=== PATIENT | male | born 1950 | race Caucasian/White ===

== ENCOUNTER 2016-12-20 08:02 | Inpatient (IN) | payer OTHER, MEDICARE ==
[2016-12-20] VITALS (7 sets, daily range): BP systolic 75–153; BP diastolic 86–105; PULSE 52–84; RESP 18–19; TEMP 97.2–97.6; O2SAT 97–100
[~2016-12-20] VITALS: Ht 188 cm; Wt 99.3 kg
[~2016-12-20 08:02] MED LIST: METO25; ZOLO25TA
[2016-12-20] MEDS ORDERED: SODIUM CHLORIDE 0.9% FLUSH 10 ML FLUSH IVF PRN ×2 (08:30)
[2016-12-20] MEDS ORDERED: SODIUM CHLOR 0.9% 1000 ML INJ 1,000 ML IV ONE ×2 (08:30)
--- NOTE | 2016-12-20 08:52 | RADRPT ---
EXAM DATE/TIME: 12/20/2016 08:34 [facility] COMPARISON: No previous studies available for comparison. INDICATIONS : Syncope, palpitations, numbness in left arm, tremor in right hand, short of breath MEDICAL HISTORY : rotator cuff tear, prostate, liver transplant SURGICAL HISTORY : Liver transplant 2014 ENCOUNTER: Initial ACUITY: 1 day PAIN SCORE: Non-responsive. LOCATION: Bilateral chest FINDINGS: A single view of the chest demonstrates the lungs to be symmetrically aerated without evidence of mas s, infiltrate or effusion. The cardiomediastinal contours are unremarkable. Osseous structures are intact. CONCLUSION: No acute disease. Micheal Conley MD on December 20, 2016 at 8:50 Board Certified Radiologist. This report was verified electronically.
[2016-12-20 08:53] LABS: AUTOMATED NEUTROPHIL # 4.4 TH/MM3 (1.8-7.7); BASOPHIL # 0.1 TH/MM3 (0-0.2); BASOPHIL % 0.8 % (0.0-2.0); EOSINOPHIL # 0.2 TH/MM3 (0-0.4); EOSINOPHIL % 3.2 % (0.0-4.0); HEMATOCRIT 38.8 % (39.0-51.0); HEMOGLOBIN 13.4 GM/DL (13.0-17.0); LYMPH % 15.2 % (9.0-44.0); LYMPHOCYTE # 0.9 TH/MM3 (1.0-4.8); MEAN CELL VOLUME 95.6 FL (80.0-100.0); MEAN CORPUSCULAR HGB CONC 34.5 % (32.0-36.0); MEAN PLATELET VOLUME 8.7 FL (7.0-11.0); MONO % 9.6 % (0.0-8.0); MONOCYTE # 0.6 TH/MM3 (0-0.9); NEUT % 71.2 % (16.0-70.0); PLATELET COUNT 135 TH/MM3 (150-450); RED BLOOD COUNT 4.06 MIL/MM3 (4.50-5.90); RED CELL DISTRIBUTION WIDTH 13.3 % (11.6-17.2); WHITE BLOOD COUNT 6.2 TH/MM3 (4.0-11.0)
--- NOTE | 2016-12-20 08:58 | PD ---
HPI Chief Complaint: Syncope/Near-Syncope Time Seen by Provider: 08:29 Travel History International Travel<30 days: No Contact w/Intl Traveler<30days: No Traveled to known affect area: No History of Present Illness HPI This is a 66-year-old male history of liver transplant, thoracic aortic aneurysm , PTSD, hypertension, who presents today after having a syncopal episode while at work. The patient had syncopal episodes in the past. At one time they believed it was secondary to his choroid plexus papilloma. 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 He states he has not had a syncopal episode for several years now. Patient does report that he had a argument with his prior to going to work. He states when he was at work he started feeling funny in the next thing he remembers is waking up on the floor. He states that he saw a neurosurgeon in [place] who recommended he not have the papilloma removed. PFSH Past Medical History Depression: Yes Cardiovascular Problems: Yes (ascending aortic aneurysm ) High Cholesterol: Yes Cirrhosis: Yes (liver transplant in 2014) Hypertension: Yes Neurologic: Yes (brain tumor- no treatment needed) ?: Not Social History Alcohol Use: No Tobacco Use: No Substance Use: No Allergies-Medications (Allergen,Severity, Reaction): Coded Allergies: No Known Allergies (Verified Allergy, Severe, 09/12/06) Reported Meds & Prescriptions Reported Meds & Active Scripts Active Reported Dapsone 100 Mg Tab 100 Mg PO DAILY Levothyroxine (Levothyroxine Sodium) 25 Mcg Tab 25 Mcg PO DAILY Amlodipine (Amlodipine Besylate) 5 Mg Tab 5 Mg PO DAILY Metoprolol Tartrate 25 Mg Tab 25 Mg PO BID Effexor (Venlafaxine HCl) 100 Mg Tab 100 Mg PO Q12H Tamsulosin (Tamsulosin HCl) 0.4 Mg Cap 0.4 Mg PO HS Aspirin 81 Mg Chew 81 Mg CHEW DAILY Tacrolimus 5 Mg Cap 5 Mg PO Q12H Review of Systems Except as stated in HPI: all other systems reviewed are Neg General / Constitutional: No: Fever, Chills HENT: No: Headaches, Lightheadedness, Neck Pain Cardiovascular: No: Chest Pain or Discomfort, Palpitations Respiratory: No: Cough, Shortness of Breath Gastrointestinal: No: Nausea, Vomiting, Abdominal Pain Genitourinary: No: Dysuria, Incontinence Musculoskeletal: No: Weakness, Pain Neurologic: Positive: Syncope, Sensory Disturbance (numbness of his left arm.) , No: Weakness, Dizziness, Headache, Change in Mentation Physical Exam Narrative GENERAL: Well-developed well-nourished male in no acute rest her distress. The patient does appear to be anxious. SKIN: Focused skin assessment warm/dry. HEAD: Atraumatic. Normocephalic. EYES: No scleral icterus. No injection or drainage. ENT: No nasal bleeding or discharge. Mucous membranes pink and moist. NECK: Trachea midline. Supple. CARDIOVASCULAR: Regular rate and rhythm. No murmur appreciated. RESPIRATORY: No accessory muscle use. Clear to auscultation. Breath sounds equal bilaterally. GASTROINTESTINAL: Abdomen soft, non-tender, nondistended. Hepatic and splenic margins not palpable. MUSCULOSKELETAL: No obvious deformities. No clubbing. No cyanosis. No edema. NEUROLOGICAL: Awake and alert. No obvious cranial nerve deficits. Motor grossly within normal limits. Normal speech. Subjective numbness to his left arm from the shoulder down to the hand. PSYCHIATRIC: Appropriate mood and affect; insight and judgment normal. Data Data Last Documented VS Vital Signs Date Time Temp Pulse Resp B/P (MAP) Pulse Ox O2 Delivery O2 Flow Rate FiO2 12/20/16 09:10 56 18 139/86 (103) 60 18 153/94 (113) 85 18 149/97 (114) 12/20/16 08:36 100 Room Air Orders Orders Electrocardiogram (12/20/16 08:30) Complete Blood Count With Diff (12/20/16 08:30) Comprehensive Metabolic Panel (12/20/16 08:30) Ckmb (Isoenzyme) Profile (12/20/16 08:30) Troponin I (12/20/16 08:30) Urinalysis - C+S If Indicated (12/20/16 08:30) Chest, Single Ap (12/20/16 08:30) Ecg Monitoring (12/20/16 08:30) Iv Access Insert/Monitor (12/20/16 08:30) Oximetry (12/20/16 08:30) Sodium Chloride 0.9% Flush (Ns Flush) (12/20/16 08:30) Sodium Chlor 0.9% 1000 Ml Inj (Ns 1000 M (12/20/16 08:30) Orthostatic Vital Signs (12/20/16 08:34) Ammonia (12/20/16 08:45) Mri Brain W&W/O Contrast (12/20/16 08:47) CKMB (12/20/16 08:30) CKMB% (12/20/16 08:30) Lorazepam Inj (Ativan Inj) (12/20/16 10:00) Gadodiamide Pf Inj (Omniscan Pf Inj) (12/20/16 12:17) Labs Laboratory Tests Test 12/20/16 08:30 12/20/16 10:57 White Blood Count 6.2 TH/MM3 Red Blood Count 4.06 MIL/MM3 Hemoglobin 13.4 GM/DL Hematocrit 38.8 % Mean Corpuscular Volume 95.6 FL Mean Corpuscular Hemoglobin 33.0 PG Mean Corpuscular Hemoglobin Concent 34.5 % Red Cell Distribution Width 13.3 % Platelet Count 135 TH/MM3 Mean Platelet Volume 8.7 FL Neutrophils (%) (Auto) 71.2 % Lymphocytes (%) (Auto) 15.2 % Monocytes (%) (Auto) 9.6 % Eosinophils (%) (Auto) 3.2 % Basophils (%) (Auto) 0.8 % Neutrophils # (Auto) 4.4 TH/MM3 Lymphocytes # (Auto) 0.9 TH/MM3 Monocytes # (Auto) 0.6 TH/MM3 Eosinophils # (Auto) 0.2 TH/MM3 Basophils # (Auto) 0.1 TH/MM3 CBC Comment DIFF FINAL Differential Comment Blood Urea Nitrogen 11 MG/DL Creatinine 1.56 MG/DL Random Glucose 103 MG/DL Total Protein 6.8 GM/DL Albumin 3.8 GM/DL Calcium Level 8.5 MG/DL Alkaline Phosphatase 73 U/L Aspartate Amino Transf (AST/SGOT) 39 U/L Alanine Aminotransferase (ALT/SGPT) 40 U/L Total Bilirubin 0.5 MG/DL Sodium Level 139 MEQ/L Potassium Level 4.4 MEQ/L Chloride Level 106 MEQ/L Carbon Dioxide Level 23.0 MEQ/L Anion Gap 10 MEQ/L Estimat Glomerular Filtration Rate 44 ML/MIN Ammonia 28 MCMOL/L Total Creatine Kinase 539 U/L Creatine Kinase MB 8.9 NG/ML Creatine Kinase MB % 1.7 % Troponin I LESS THAN 0.02 NG/ML Urine Color COLORLESS Urine Turbidity CLEAR Urine pH 7.0 Urine Specific [place] 1.005 Urine Protein NEG mg/dL Urine Glucose (UA) NEG mg/dL Urine Ketones NEG mg/dL Urine Occult Blood NEG Urine Nitrite NEG Urine Bilirubin NEG Urine Urobilinogen LESS THAN 2.0 MG/DL Urine Leukocyte Esterase NEG Urine RBC LESS THAN 1 /hpf Urine WBC 1 /hpf Microscopic Urinalysis Comment CULT NOT INDICATED MDM Medical Decision Making Medical Screen Exam Complete: Yes Emergency Medical Condition: Yes Differential Diagnosis Syncope versus seizure versus CVA versus metabolic drainage. Narrative Course 66-year-old male with a history of Court plexus papilloma, who presents today after having a syncopal episode while at work. The patient reports being confused after the episode. He's had syncope prior to this. The patient states that he was told that he did not need to have this papilloma removed. MRI of the brain shows a 2 and half by 2.9 cm right parietal mass. Unsure whether this is the same mass the patient is referring to that was supposedly in his fourth ventricle. The patient is having symptoms of left hand numbness and tingling. He states it started yesterday. The rest of his neuro exam is nonfocal. Concern is that this may not have been a syncopal episode. I'm concerned that this may have been a seizure. There is a call out to the [facility] hospitalist service for admission and further evaluation. Diagnosis Primary Impression: Syncope Additional Impressions: Intracranial mass History of hypertension Admitting Information Admitting Physician Requests: Admit David Julian MD Dec 20, 2016 08:58
[2016-12-20 09:06] LABS: ALBUMIN 3.8 GM/DL (3.4-5.0); ALT (GPT) 40 U/L (12-78); AST (GOT) 39 U/L (15-37); BLOOD UREA NITROGEN 11 MG/DL (7-18); CALCIUM 8.5 MG/DL (8.5-10.1); CHLORIDE 106 MEQ/L (98-107); CREATININE 1.56 MG/DL (0.60-1.30); GLOMERULAR FILTRATION RATE 44 ML/MIN (>89); GLUCOSE,RANDOM 103 MG/DL (74-106); SODIUM (NA) 139 MEQ/L (136-145)
[2016-12-20] MEDS ORDERED: VENL100T PO ×2 (09:10)
[2016-12-20] MEDS ORDERED: TACR5CAP PO ×2 (09:10)
[2016-12-20] MEDS ORDERED: TAMS0.4C4 PO ×2 (09:10)
[2016-12-20] MEDS ORDERED: AMLO5TAB2 PO ×2 (09:10)
[2016-12-20] MEDS ORDERED: LEVO25TA4 PO ×2 (09:10)
[2016-12-20] MEDS ORDERED: METO25TA3 PO ×2 (09:10)
[2016-12-20] MEDS ORDERED: ASPI81CH CHEW ×2 (09:10)
[2016-12-20] MEDS ORDERED: DAPS1TAB2 PO ×2 (09:10)
[2016-12-20 09:13] LABS: ALKALINE PHOSPHATASE 73 U/L (45-117); TOTAL BILIRUBIN ADULT 0.5 MG/DL (0.2-1.0); TOTAL PROTEIN 6.8 GM/DL (6.4-8.2); TROPONIN I LESS THAN 0.02 NG/ML (0.02-0.05)
[2016-12-20] MEDS ORDERED: LORazepam 2 MG/ML VIAL IV PUSH ONE ×2 (10:00)
[2016-12-20 11:55] LABS: BILIRUBIN, URINE NEG (NEG); BLOOD, URINE NEG (NEG); GLUCOSE,URINE NEG (NEG); KETONE, URINE NEG (NEG); NITRITE,URINE NEG (NEG); URINE COLOR COLORLESS (YELLW/STRAW); URINE LEUKOCYTE ESTERASE NEG (NEG)
[2016-12-20] MEDS ORDERED: GADODIAMIDE PF 287 MG/ML 20 ML VIAL (for RAD MRI) IVCONTRAST ONE ×2 (12:17)
--- NOTE | 2016-12-20 12:35 | RADRPT ---
EXAM DATE/TIME: 12/20/2016 11:32 [facility] COMPARISON: No previous studies available for comparison. INDICATIONS : Brain mass. CONTRAST: 20 cc Omniscan (gadodiamide) IV MEDICAL HISTORY : Hypertension. SURGICAL HISTORY : LIVER TRANSPLANT ENCOUNTER: Subsequent ACUITY: 2 day PAIN SCORE: 2/10 LOCATION: cranial TECHNIQUE: Multiplanar, multisequence MRI of the brain was performed both prior to and following the administrat ion of paramagnetic contrast. FINDINGS: A heterogeneously enhancing mass is seen in the right parietal lobe. It is adjacent to and potentiall y arising from within the posterior horn of the right ventricle and is focally contiguous with the ch oroid plexus. The mass measures approximately 2.2 x 2.9 x 2.5 cm. There may be some patchy calcificat ion and please correlate with CT. Focal adjacent cystic expansion of the right lateral ventricle is n oted. There is some susceptibility artifact within the mass on the gradient echo imaging. No midline shift. No other masses are demonstrated. No acute bleed. Mild chronic periventricular white matter changes a re noted. There is no evidence of an acute ischemic event. CONCLUSION: Solid, heterogeneously enhancing right parietal lobe mass that is periventricular but probably not in traventricular. The lesion is nonspecific. Hemangioblastoma, glial tumor, metastatic disease and lymp elieser are in the differential. No midline shift. No acute hemorrhage. Focal cystic expansion of the ri ght lateral ventricle but no diffuse ventriculomegaly. Leonard Rosenthal MD on December 20, 2016 at 12:26 Board Certified Radiologist. This report was verified electronically.
--- NOTE | 2016-12-20 13:34 | EKG ---
Date Performed: 12/20/2016 Time Performed: 08:31:11 PTAGE: 66 years EKG: Sinus rhythm MARKED LEFT AXIS DEVIATION ABNORMAL ECG Compared to prior tracing no significant change PREVIOUS TRACING : 09/15/2006 05.48 DOCTOR: Noé Raines Interpretating Date/Time 12/20/2016 13:31:02
[2016-12-20] MEDS ORDERED: LORazepam 2 MG/ML VIAL IV PUSH PRN ×2 (13:45)
[2016-12-20] MEDS ORDERED: NALOXONE HCL 0.4 MG/ML AMP IV PUSH PRN ×2 (13:45)
[2016-12-20] MEDS ORDERED: SODIUM CHLORIDE 0.9% FLUSH 10 ML FLUSH IV FLUSH PRN ×2 (13:45)
--- NOTE | 2016-12-20 15:52 | MB ---
cc: BRITT WITT DATE OF CONSULTATION: 12/20/2016 REASON FOR CONSULTATION Syncope versus seizure. HISTORY OF PRESENT ILLNESS Mr. Villa is a very pleasant 66-year-old man who had episode of loss of consciousness today. This occurred while he was at work. He has a history of syncope several years ago in the past. 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 He was under stress prior to the event. He never had any seizures in the past. PAST MEDICAL HISTORY 1. History of choroid plexus papilloma. 2. Hypertension. 3. Thoracic aortic aneurysm. 4. PTSD. 5. Liver transplant in 2014. MEDICATIONS Medications at home are: 1. Dapsone. 2. Levothyroxine. 3. Amlodipine. 4. Metoprolol. 5. Effexor. 6. Tamsulosin. 7. Aspirin. 8. Tacrolimus. ALLERGIES None known. SOCIAL HISTORY Denies alcohol use. NEUROLOGIC EXAMINATION VITAL SIGNS: Blood pressure is 139/86 supine, standing is 149/97, pulse is 60, respirations 18. NEURO EXAM: Higher cortical functions are normal. Cranial nerves intact. Motor exam 5/5 strength of all groups in both upper and lower extremities. There is no drift. 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 LABORATORY DATA White count is 6200, hemoglobin 13.4, hematocrit 38%, platelets 135,000. Sodium 139, potassium 4.4, chloride 106, CO2 23, the BUN is 11, creatinine 1.56, GFR is 44, AST 39, ALT is 40, ammonia 28. EEG Shows arrhythmic periodic discharges, possibly epileptiform in nature. EKG Shows left axis deviation. IMPRESSION 1. Syncope, possible seizure based on the EEG finding. 2. MRI finding of the tumor in the right parietal area, does appear to be adjacent to the cord plexus, suspect cord plexus papilloma based on history. RECOMMENDATIONS Recommend starting Keppra, because of the EEG findings, suggest neurosurgical evaluation as well. Also obtain carotid ultrasound and echocardiogram. MD VALERY Aguiar/PHAN /3:14 PM /3:24 PM
--- NOTE | 2016-12-20 16:14 | HHI.HP ---
HPI Service [facility] Primary Care Physician [facility] Admission Diagnosis syncope vs seizure, hypertension, liver transplant, renal insufficie Diagnoses: Travel History International Travel<30 Days: No Contact w/Intl Traveler <30 Da: No Traveled to Known Affected Are: No History of Present Illness hx from patient, ER MD communication and review of medical records stated had "syncope" felt dark felt loss of sense of direction maybe did not pass out was sitting at the tiem no focal weakness witnessed said was shaking post ictal confusion no incontinence very sleepy during interview no sedatives- last ativan 5 hrs ago had eeg done chronic diarrhea since 2016 liver transplant Review of Systems Except as stated in HPI: all other systems reviewed are Neg Past Family Social History Past Medical History thoracic aortic aneurysm 4.3cm htn basal cell carcinoma of skin kidney stones liver cirrhosis due to etoh- s/p transplant Past Surgical History liver transplant Allergies: Coded Allergies: No Known Allergies (Verified Allergy, Severe, 09/12/06) Family History mom- had cancer 3x, breast cancer, renal cancer dad- strokes Social History quit smoking at age 24 yo no etoh since oct 31, 2011 no drugs before or now Physical Exam Vital Signs Vital Signs Date Time Temp Pulse Resp B/P (MAP) Pulse Ox O2 Delivery O2 Flow Rate FiO2 12/20/16 15:01 52 18 140/95 (110) 99 Nasal Cannula 2.00 12/20/16 09:10 56 18 139/86 (103) 60 18 153/94 (113) 85 18 149/97 (114) 12/20/16 08:36 18 100 Room Air 12/20/16 08:30 59 18 100 Room Air 12/20/16 08:19 70 18 75/105 (95) 100 Room Air Physical Exam GENERAL: This is a well-nourished, well-developed patient, in no apparent distress. very sleepy during exam, needed multiple prompting to get simple answers SKIN: No rashes, ecchymoses or lesions. Cool and dry. HEAD: Atraumatic. Normocephalic. No temporal or scalp tenderness. EYES: No scleral icterus. No injection or drainage. ENT: Nose without bleeding, purulent drainage or septal hematoma.. Airway patent. NECK: Trachea midline. No JVD Supple, nontender, no meningeal signs. CARDIOVASCULAR: Regular rate and rhythm without murmurs, gallops, or rubs. RESPIRATORY: Clear to auscultation. Breath sounds equal bilaterally. No wheezes , rales, or rhonchi. GASTROINTESTINAL: Abdomen soft, non-tender, nondistended. No guarding. MUSCULOSKELETAL: Extremities without clubbing, cyanosis, or edema. No calf tenderness. NEUROLOGICAL: Awake and alert. Cranial nerves II through XII intact. Motor and sensory grossly within normal limits. Normal speech. Laboratory Laboratory Tests Test 12/20/16 08:30 12/20/16 10:57 White Blood Count 6.2 Red Blood Count 4.06 Hemoglobin 13.4 Hematocrit 38.8 Mean Corpuscular Volume 95.6 Mean Corpuscular Hemoglobin 33.0 Mean Corpuscular Hemoglobin Concent 34.5 Red Cell Distribution Width 13.3 Platelet Count 135 Mean Platelet Volume 8.7 Neutrophils (%) (Auto) 71.2 Lymphocytes (%) (Auto) 15.2 Monocytes (%) (Auto) 9.6 Eosinophils (%) (Auto) 3.2 Basophils (%) (Auto) 0.8 Neutrophils # (Auto) 4.4 Lymphocytes # (Auto) 0.9 Monocytes # (Auto) 0.6 Eosinophils # (Auto) 0.2 Basophils # (Auto) 0.1 CBC Comment DIFF FINAL Differential Comment Blood Urea Nitrogen 11 Creatinine 1.56 Random Glucose 103 Total Protein 6.8 Albumin 3.8 Calcium Level 8.5 Alkaline Phosphatase 73 Aspartate Amino Transf (AST/SGOT) 39 Alanine Aminotransferase (ALT/SGPT) 40 Total Bilirubin 0.5 Sodium Level 139 Potassium Level 4.4 Chloride Level 106 Carbon Dioxide Level 23.0 Anion Gap 10 Estimat Glomerular Filtration Rate 44 Ammonia 28 Total Creatine Kinase 539 Creatine Kinase MB 8.9 Creatine Kinase MB % 1.7 Troponin I LESS THAN 0.02 Urine Color COLORLESS Urine Turbidity CLEAR Urine pH 7.0 Urine Specific [place] 1.005 Urine Protein NEG Urine Glucose (UA) NEG Urine Ketones NEG Urine Occult Blood NEG Urine Nitrite NEG Urine Bilirubin NEG Urine Urobilinogen LESS THAN 2.0 Urine Leukocyte Esterase NEG Urine RBC LESS THAN 1 Urine WBC 1 Microscopic Urinalysis Comment CULT NOT INDICATED Result Diagram: 12/20/1682912/20/16829 Imaging Last 48 hours Impressions Brain MRI 12/20/16846 Signed Impressions: Service Date/Time: December 11:32 - CONCLUSION: Solid, heterogeneously enhancing right parietal lobe mass that is periventricular but probably not intraventricular. The lesion is nonspecific. Hemangioblastoma, glial tumor, metastatic disease and lymphoma are in the differential. No midline shift. No acute hemorrhage. Focal cystic expansion of the right lateral ventricle but no diffuse ventriculomegaly. Leonard Rosenthal MD Chest X-Ray 12/20/16829 Signed Impressions: Service Date/Time: December 08:34 - CONCLUSION: No acute disease. Micheal Conley MD Caprincynthia VTE Risk Assessment Caprini VTE Risk Assessment: Mod/High Risk (score >= 2) Caprini Risk Assessment Model Point Value = 1 Point Value = 2 Point Value = 3 Point Value = 5 Age 41-60 Minor surgery BMI > 25 kg/m2 Swollen legs Varicose veins or History of unexplained or recurrent spontaneous Oral contraceptives or hormone replacement Sepsis (< 1 month) Serious lung disease, including pneumonia (< 1 month) Abnormal pulmonary function Acute myocardial infarction Congestive heart failure (< 1 month) History of inflammatory bowel disease Medical patient at bed rest Age 61-74 Arthroscopic surgery Major open surgery (> 45 min) Laparoscopic surgery (> 45 min) Malignancy Confined to bed (> 72 hours) Immobilizing plaster cast Central venous access Age >= 75 History of VTE Family history of VTE Factor V Leiden Prothrombin [id number] Lupus anticoagulant Anticardiolipin antibodies Elevated serum homocysteine Heparin-induced thrombocytopenia Other congenital or acquired thrombophilia Stroke (< 1 month) Elective arthroplasty Hip, pelvis, or leg fracture Acute spinal cord injury (< 1 month) Prophylaxis Regimen Total Risk Factor Score Risk Level Prophylaxis Regimen 0-1 Low Early ambulation 2 Moderate Order ONE of the following: *Sequential Compression Device (SCD) *Heparin 5000 units SQ BID 3-4 Higher Order ONE of the following medications: *Heparin 5000 units SQ TID *Enoxaparin/Lovenox 40 mg SQ daily (WT < 150 kg, CrCl > 30 mL/min) *Enoxaparin/Lovenox 30 mg SQ daily (WT < 150 kg, CrCl > 10-29 mL/min) *Enoxaparin/Lovenox 30 mg SQ BID (WT < 150 kg, CrCl > 30 mL/min) AND/OR *Sequential Compression Device (SCD) 5 or more Highest Order ONE of the following medications: *Heparin 5000 units SQ TID (Preferred with Epidurals) *Enoxaparin/Lovenox 40 mg SQ daily (WT < 150 kg, CrCl > 30 mL/min) *Enoxaparin/Lovenox 30 mg SQ daily (WT < 150 kg, CrCl > 10-29 mL/min) *Enoxaparin/Lovenox 30 mg SQ BID (WT < 150 kg, CrCl > 30 mL/min) AND *Sequential Compression Device (SCD) Assessment and Plan Assessment and Plan Impression: 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- etiology unclear Plan: seizure precautions eeg neuro consult - notes reviewed- echo and carotid per neurology, started on keppra , eeg positive likely per neuro notes, official report pending ativan prn for seizures neurosx consult for possible diagnostic biopsy resume home meds dvt prophylaxis scd due to brain lesion Discussed Condition With patient, er md, nursing staff Physician Certification 2 Midnight Certification Type: Admission for Inpatient Services Order for Inpatient Services The services are ordered in accordance with Medicare regulations or non- Medicare payer requirements, as applicable. In the case of services not specified as inpatient-only, they are appropriately provided as inpatient services in accordance with the 2-midnight benchmark. Estimated LOS (days): 2 days is the estimated time the patient will need to remain in the hospital, assuming treatment plan goals are met and no additional complications. Post-Hospital Plan: Home Marisela Gomez MD Dec 20, 2016 16:14
--- NOTE | 2016-12-20 18:59 | RADRPT ---
EXAM DATE/TIME: 12/20/2016 18:18 [facility] COMPARISON: No previous studies available for comparison. INDICATIONS : Syncope. MEDICAL HISTORY : Hypercholesterolemia. Hypertension. Choroid plexus papilloma. PTSD. Ascending aortic aneurysm. SURGICAL HISTORY : Laminectomy. Liver transplant. ENCOUNTER: Initial ACUITY: 1 day PAIN SCORE: 110 LOCATION: Bilateral neck PEAK SYSTOLIC VELOCITIES (cm/sec): ICA/CCA RATIO: Right: 1.4 Left: 1.1 ICA: Right: 81.3 Left: 62.8 CCA: Right: 58.1 Left: 59.4 ECA: Right: 70.9 Left: 64.7 VERTEBRAL: Right: NOT VISUALIZED absent Left: 30.4 antegrade Elevated flow velocities and ICA/CCA ratios have been found to correlate with increased degrees of vessel stenosis, calculated as percentage of diameter relative to a normal segment of distal ICA/CCA FINDINGS: RIGHT CAROTID: No significant stenosis is visualized. Calcific plaque is present in the bulb. The waveforms are wit hin normal limits. LEFT CAROTID: No significant stenosis is visualized. Calcific plaque is present in the bulb. The waveforms are with in normal limits. VERTEBRAL ARTERIES: Normal antegrade flow in the left vertebral artery. No flow identified in the right vertebral artery. MISCELLANEOUS: None. CONCLUSION: 1. No flow visualized in the right vertebral artery which could indicate occlusion 2. Mild to moderate moderate plaque with no evidence of a hemodynamically significant lesion in the i nternal carotid arteries. Ap Arrieta MD on December 20, 2016 at 18:55 Board Certified Radiologist. This report was verified electronically.
--- NOTE | 2016-12-20 20:00 | MG ---
cc: KHALIDA ANN MD Lab No: Date: 12/20/16 Age: 66 Sex: M Race: DATE OF [address] Gomez MEDICAL HISTORY Syncopal episode with loss of consciousness at work. Left arm felt like pins and needles, right arm shaking. History of liver transplant 2014. Thoracic aortic aneurysm, PTSD, hypertension, depression, hypercholesteremia, laminectomy. MEDICATIONS 2 milligrams Ativan at 11:09 this morning and this EEG was done at 2:22 p.m. DESCRIPTION Background activity is 6-7 Hz Theta activity with excessive beta activity. During the recording there was slowing of the background and appear transitioned with appearance of K complexes and sleep spindles with transition to stage II sleep. The EEG recording is contaminated by movement artifact. Hyperventilation was not done. The patient was too sleepy. Photic stimulation did not elicit a driving response. There were no electrographic seizures or epileptiform discharges seen during the recording. INTERPRETATION This is an awake, drowsy and sleep EEG. Excess beta activity is a nonspecific finding that may be related to medication adverse effect like benzos and barbiturates. Absence of electrographic seizures or epileptiform discharges does not exclude a diagnosis of epilepsy. Clinical correlation is recommended. Khalida Ann MD RGO/EO /7:43 PM 7:55 PM [facility]
--- NOTE | 2016-12-20 20:19 | RADRPT ---
EXAM DATE/TIME: 12/20/2016 19:51 [place] COMPARISON: MRI BRAIN W & W/O CONTRAST, December 20, 2016, 11:32. INDICATIONS : Syncopal episode. Brain tumor visualized on MRI.. RADIATION DOSE: 52..05 CTDIvol (mGy) MEDICAL HISTORY : Seizures. Hypertension. SURGICAL HISTORY : None. ENCOUNTER: Subsequent ACUITY: 1 day PAIN SCALE: 0/10 LOCATION: cranial TECHNIQUE: Multiple contiguous axial images were obtained of the head. Using automated exposure control and adj ustment of the mA and/or kV according to patient size, radiation dose was kept as low as reasonably a chievable to obtain optimal diagnostic quality images. DICOM format image data is available electro nically for review and comparison. FINDINGS: Again noted is an oval mass measuring 2.6 x 2 cm in diameter located along the posterior horn of the right lateral ventricle which is contiguous with the choroid plexus. Contains areas of punctate calcification and the mass is of higher density than the brain parenchyma. There is adjacent focal lo w density area as noted on the MRI. There is no acute hemorrhage, mass effect or midline shift. The p osterior fossa and brainstem are unremarkable. The bone windows demonstrate the calvaria is intact. CONCLUSION: The mass is partially calcified and of high density. There is no surrounding edema or mass effect. This remains nonspecific. Ap Arrieta MD on December 20, 2016 at 20:13 Board Certified Radiologist. This report was verified electronically.
[2016-12-20] MEDS: SODIUM CHLORIDE 0.9% FLUSH 10 ML FLUSH IV FLUSH SCH ×2 (20:31)
[2016-12-20] MEDS: VENLAFAXINE HCL 25 MG TAB PO SCH ×2 (20:32)
[2016-12-20] MEDS: levETIRAcetam 500 MG TAB PO SCH ×2 (20:33)
[2016-12-20] MEDS: METOPROLOL TARTRATE 25 MG TAB PO SCH ×2 (20:33)
[2016-12-20] MEDS ORDERED: TACROLIMUS 0.5 MG CAP PO SCH ×2 (21:00)
[2016-12-20] MEDS ORDERED: TAMSULOSIN HCL 0.4 MG CAP PO SCH ×2 (21:00)
[2016-12-20] MEDS ORDERED: TACROLIMUS 1 MG CAP PO SCH ×2 (21:00)
[2016-12-20] MEDS ORDERED: TACROLIMUS 5 MG CAP PO SCH ×2 (21:00)
[2016-12-20] MEDS ORDERED: TACR1CAP PO ×4 (21:10)
[2016-12-20] MEDS ORDERED: MAGO400T2 PO ×2 (21:13)
[2016-12-20] MEDS ORDERED: PROT40TA PO ×2 (21:15)
[2016-12-20] MEDS: MAGNESIUM OXIDE 400 MG TAB PO SCH ×2 (22:17)
[2016-12-21 03:38] VITALS: BP 121/69; PULSE 52; RESP 18; TEMP 97.7; O2SAT 98
[2016-12-21] MEDS: VENLAFAXINE HCL 25 MG TAB PO SCH ×2 (05:43)
[2016-12-21] MEDS ORDERED: LEVOTHYROXINE SODIUM 25 MCG TAB PO SCH ×2 (06:00)
[2016-12-21 07:13] LABS: AUTOMATED NEUTROPHIL # 4.4 TH/MM3 (1.8-7.7); BASOPHIL # 0.1 TH/MM3 (0-0.2); EOSINOPHIL # 0.2 TH/MM3 (0-0.4); EOSINOPHIL % 3.3 % (0.0-4.0); HEMATOCRIT 38.5 % (39.0-51.0); HEMOGLOBIN 13.3 GM/DL (13.0-17.0); LYMPH % 16.8 % (9.0-44.0); LYMPHOCYTE # 1.1 TH/MM3 (1.0-4.8); MEAN CELL VOLUME 95.9 FL (80.0-100.0); MEAN CORPUSCULAR HEMOGLOBIN 33.1 PG (27.0-34.0); MEAN CORPUSCULAR HGB CONC 34.5 % (32.0-36.0); MEAN PLATELET VOLUME 8.9 FL (7.0-11.0); MONO % 9.9 % (0.0-8.0); MONOCYTE # 0.6 TH/MM3 (0-0.9); PLATELET COUNT 149 TH/MM3 (150-450); RED BLOOD COUNT 4.01 MIL/MM3 (4.50-5.90); RED CELL DISTRIBUTION WIDTH 13.1 % (11.6-17.2); WHITE BLOOD COUNT 6.4 TH/MM3 (4.0-11.0)
[2016-12-21 07:36] LABS: CALCIUM 8.9 MG/DL (8.5-10.1); CREATININE 1.68 MG/DL (0.60-1.30)
[2016-12-21 08:00] VITALS: BP 138/85; PULSE 52; RESP 18; TEMP 96.7; O2SAT 99
[2016-12-21] MEDS ORDERED: TACROLIMUS 1 MG CAP PO SCH ×2 (08:00)
[2016-12-21] MEDS ORDERED: ASPIRIN 81 MG CHEW TAB CHEW SCH ×2 (09:00)
[2016-12-21] MEDS ORDERED: PANTOPRAZOLE SOD 40 MG DELAYED RELEASE TAB PO SCH ×2 (09:00)
[2016-12-21] MEDS ORDERED: amLODIPine BESYLATE 5 MG TAB PO SCH ×2 (09:00)
[2016-12-21] MEDS: SODIUM CHLORIDE 0.9% FLUSH 10 ML FLUSH IV FLUSH SCH ×2 (09:00)
[2016-12-21] MEDS ORDERED: DAPSONE 100 MG TAB PO SCH ×2 (09:00)
[2016-12-21] MEDS: levETIRAcetam 500 MG TAB PO SCH ×2 (10:34)
[2016-12-21] MEDS: METOPROLOL TARTRATE 25 MG TAB PO SCH ×2 (10:34)
[2016-12-21] MEDS: MAGNESIUM OXIDE 400 MG TAB PO SCH ×2 (10:35)
[2016-12-21 12:00] VITALS: BP 123/83; PULSE 50; RESP 18; TEMP 97.5; O2SAT 96
--- NOTE | 2016-12-21 12:22 | HHI.PR ---
Subjective Remarks SEEN BY NEURO SURGEON, CLEARED CAROL GILL dc ,Carol VALVERDE NAD, AMBULATING IN [facility],. FELS MUCH BETETR. WANTS TO GO HORM. sAYS SHE HAD THE MASS SINCE 2004 . ALSO HAD EXTENSIVE WORK UP WITH CARDIOLOGY OP. Objective Vitals Vital Signs Date Time Temp Pulse Resp B/P (MAP) Pulse Ox O2 Delivery O2 Flow Rate FiO2 12/21/16 08:00 96.7 52 18 138/85 (102) 99 12/21/16 03:38 97.7 52 18 121/69 (86) 98 12/20/16 23:30 97.6 59 18 118/87 (97) 97 12/20/16 21:00 60 12/20/16 19:13 97.2 84 19 144/94 (111) 100 12/20/16 15:01 52 18 140/95 (110) 99 Nasal Cannula 2.00 I/O 12/20/16 12/20/16 12/20/16 12/21/16 12/21/16 12/21/16 07:00 15:00 23:00 07:00 15:00 23:00 Intake Total 480 ml 480 ml Balance 480 ml 480 ml Intake Oral 480 ml 480 ml # Voids 2 2 # Bowel Movements 0 0 Result Diagram: 12/21/16 0637 12/21/16 0637 Imaging Last Impressions Head CT 12/20/16 1742 Signed Impressions: Service Date/Time: December 19:51 - CONCLUSION: The mass is partially calcified and of high density. There is no surrounding edema or mass effect. This remains nonspecific. Ap Arrieta MD Brain MRI 12/20/16 0847 Signed Impressions: Service Date/Time: December 11:32 - CONCLUSION: Solid, heterogeneously enhancing right parietal lobe mass that is periventricular but probably not intraventricular. The lesion is nonspecific. Hemangioblastoma, glial tumor, metastatic disease and lymphoma are in the differential. No midline shift. No acute hemorrhage. Focal cystic expansion of the right lateral ventricle but no diffuse ventriculomegaly. Leonard Rosenthal MD Chest X-Ray 12/20/16 0830 Signed Impressions: Service Date/Time: December 08:34 - CONCLUSION: No acute disease. Micheal Conley MD Carotid Artery Ultrasound 12/20/16 0000 Signed Impressions: Service Date/Time: December 18:18 - CONCLUSION: 1. No flow visualized in the right vertebral artery which could indicate occlusion 2. Mild to moderate moderate plaque with no evidence of a hemodynamically significant lesion in the internal carotid arteries. Ap Arrieta MD Objective Remarks GENERAL: In nad, pleasant, ambulating, well nourished, well developed male. SKIN: Warm and dry. HEAD: Atraumatic. Normocephalic. EYES: Pupils equal and round. No scleral icterus. No injection or drainage. ENT: No nasal bleeding or discharge. Mucous membranes pink and moist. NECK: Trachea midline. No JVD. CARDIOVASCULAR: Regular rate and rhythm. RESPIRATORY: No accessory muscle use. Clear to auscultation. Breath sounds equal bilaterally. GASTROINTESTINAL: Abdomen soft, non-tender, nondistended. Hepatic and splenic margins not palpable. MUSCULOSKELETAL: Extremities without clubbing, cyanosis, or edema. No obvious deformities. NEUROLOGICAL: Awake and alert. No obvious cranial nerve deficits. Motor grossly within normal limits. Five out of 5 muscle strength in the arms and legs. Normal speech. PSYCHIATRIC: Appropriate mood and affect; insight and judgment normal. A/P Assessment and Plan New onset seizures Right parietal lobe brain lesion- etiology unclear . However he did fu with his neurosurgeon on [place] . Says did not recommend surgical intervention patient is also a transplant liver patient. seizure precautions eeg neuro consult - notes reviewed- echo and carotid per neurology, started on keppra , eeg positive likely per neuro notes, official report pending ativan prn for seizures neurosx consult, seen by neurosurgery cleared patient for DC, aptient had this mass for a long time. Will f/u with his neurology Dr in [place] resume home meds dvt prophylaxis scd due to brain lesion Discussed Condition With patient,nurse, family at bedside Discharge Planning DC home in stable condition to f/u as oP with P[facility] and consultants. Diet healthy heart Activity ad samuel as tolerated. Meds per med reconciliations Elsy Neal MD Dec 21, 2016 12:22
[2016-12-21] MEDS ORDERED: LEVE500 PO ×2 (13:26)
--- NOTE | 2016-12-21 13:26 | HHI.DCPOC ---
Discharge Care Plan Goals to Promote Your Health * To prevent worsening of your condition and complications * To maintain your health at the optimal level Directions to Meet Your Goals Take your medications as prescribed Follow your dietary instruction Follow activity as directed Keep your appointments as scheduled Take your immunizations and boosters as scheduled If your symptoms worsen call your PCP, if no PCP go to Urgent Care Center or Emergency Room Smoking is Dangerous to Your Health. Avoid second hand smoke Call the 24-hour hour crisis hotline for domestic abuse at Elsy Neal MD Dec 21, 2016 13:26
--- NOTE | 2016-12-21 13:26 | HHI.DCPOC ---
Discharge Care Plan Goals to Promote Your Health * To prevent worsening of your condition and complications * To maintain your health at the optimal level Directions to Meet Your Goals Take your medications as prescribed Follow your dietary instruction Follow activity as directed Keep your appointments as scheduled Take your immunizations and boosters as scheduled If your symptoms worsen call your PCP, if no PCP go to Urgent Care Center or Emergency Room Smoking is Dangerous to Your Health. Avoid second hand smoke Call the 24-hour hour crisis hotline for domestic abuse at Elsy Neal MD Dec 21, 2016 13:26
--- NOTE | 2016-12-21 13:26 | HHI.DCPOC ---
Discharge Care Plan Goals to Promote Your Health * To prevent worsening of your condition and complications * To maintain your health at the optimal level Directions to Meet Your Goals Take your medications as prescribed Follow your dietary instruction Follow activity as directed Keep your appointments as scheduled Take your immunizations and boosters as scheduled If your symptoms worsen call your PCP, if no PCP go to Urgent Care Center or Emergency Room Smoking is Dangerous to Your Health. Avoid second hand smoke Call the 24-hour hour crisis hotline for domestic abuse at Elsy Neal MD Dec 21, 2016 13:26
--- NOTE | 2016-12-21 19:08 | MB ---
cc: [facility] DATE OF CONSULTATION 12/21/16 REASON FOR CONSULTATION Right occipital intraventricular calcified mass. 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 He and his relate that it was diagnosed 10 years ago. He has also seen neurosurgery and followed by neurology and nonsurgical treatment is recommended. He presented to the emergency room on 12/20/2016 with a near syncopal episode while he was at work. He says he was very stressed out and upset prior to this episode and then subsequently noted lightheadedness and dizziness and felt like he was going to pass out and also had transient numbness in his left hand. He was brought to [facility] and has had an MRI and CT scan of the head which reveals a calcified right occipital intraventricular mass consistent with the choroid plexus papilloma. There is no surrounding edema or mass effect and there is no associated hydrocephalus. The mass measures 2.9 cm in maximum dimension. Neurologist felt that he may have had syncope and possible seizures and has placed on Keppra. He has had previous syncopal episodes and he has had cardiac workup in the past which was unremarkable. He also relates complaints of neck pain and intermittent numbness in the upper extremities. PAST MEDICAL HISTORY 1. Alcoholic cirrhosis status post liver transplant and is currently on immunosuppressive therapy, 2. Thoracic aortic aneurysm, 3. Hypertension, 4. Kidney stones, 5. Chronic kidney disease, 6. Basal cell carcinoma of the skin 7. Left foot injury with chronic weakness and numbness right rotator cuff injury. ALLERGIES None. FAMILY HISTORY His father had multiple strokes, has a history of cancer in his mother and suffered from breast and renal cancer. MEDICATIONS 1. Amlodipine 5 mg daily. 2. Aspirin 81 mg daily. 3. Dapsone 100 mg daily. 4. Keppra 500 mg 5. Levothyroxine 25 mcg daily. 6. Magnesium oxide 400 mg b.i.d. 7. Metoprolol 25 mg b.i.d. 8. Protonix 40 mg daily. 9. Tacrolimus. 10. Flomax 0.4 mg q.h.s. 11. Effexor 100 mg b.i.d. SOCIAL HISTORY He is single, although his significant other is with him. He is a former smoker and he also relates that he quit drinking prior to his liver transplant. 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 LABORATORY FINDINGS White blood cell count 6.4, hemoglobin 13.3, platelet count 149 Sodium 138, potassium 4.5, BUN 14, creatinine 1.68, glucose 110. PHYSICAL EXAMINATION VITAL SIGNS: Temperature 97.5, pulse is 50, respiratory rate 18, blood pressure 123/83, oxygen saturation 96% on room air. HEAD: Head and normocephalic, atraumatic. No Coleman's or raccoon signs. NECK: Supple with no guarding or rigidity. CHEST: Clear to incision bilaterally HEART: mild bradycardia although rhythm is regular. No murmurs. ABDOMEN: Soft, nontender. No guarding or rigidity. EXTREMITIES: No cyanosis or edema. SKIN: There is no ecchymosis or rash. EYES: No subconjunctival hemorrhage and sclerae are nonicteric. NEUROLOGIC: He is awake, alert. He is oriented x3. Pupils equal, reactive. Extraocular movements are intact. Face symmetric. Tongue is midline. He moves all four extremities with 5/5 strength. Negative Babinski. Light touch sensation intact. Speech is fluent. Gait is normal. IMPRESSION 1. Right lateral ventricle occipital horn calcified mass consistent with a choroid plexus papilloma. He has been diagnosed with this for over 10 years and is followed by neurosurgery and neurology who have recommended nonsurgical treatment. 2. Cirrhosis status post liver transplant on chronic immunosuppressive therapy. 3. Syncopal episode versus seizure. PLAN The patient relates that his liver transplant team has recommended that he avoid any surgeries unless life-threatening given his immunosuppressive chronic therapy and risk for complications thereof. He also relates that his neurosurgeon in the past has related nonsurgical management of this calcified intraventricular mass. Given that at this point it seems to be relatively asymptomatic, I would concur with nonsurgical management and observation. If there is documented growth in the future or if he develops hydrocephalus, then surgical option would need to be re-entertained. The patient and his family are requesting that he be discharged home and, from my standpoint, if cleared by neurology he could be discharged. He will follow up with his local neurologist and neurosurgeon. MD JAKY Lundy/ /5:21 PM /6:40 PM
== END 2016-12-21 16:20 | disposition home or self-care (01) | DRG 312 ==
LOC: NEPC 08:02 → NEDA 13:59 → N06B 16:48
PROVIDERS: ADMIT Hospitalist; ATTEND Hospitalist
DX: R55 Syncope and collapse (principal); R56.9 Unspecified convulsions; K70.30 Alcoholic cirrhosis of liver without ascites; Z94.0 Kidney transplant status; I12.9 Hypertensive chronic kidney disease with stage 1 through stage 4 chronic kidney disease, or unspecified chronic kidney disease; N18.9 Chronic kidney disease, unspecified; Z85.828 Personal history of other malignant neoplasm of skin; D33.0 Benign neoplasm of brain, supratentorial; Z87.891 Personal history of nicotine dependence; Z79.899 Other long term (current) drug therapy
CPT/HCPCS: 70450; 70553; 71010; 80048; 80053; 81001; 82140; 82550; 82552; 84484; 85025; 93005; 93880; 95819; 96374; A9579; J2060; J7030; J7507